=== PATIENT | male | born 1950 | race Caucasian/White ===

== ENCOUNTER 2019-03-25 08:00 | Day surgery (SDC) | payer MEDICARE, BC ==
[~2019-03-25] VITALS: Ht 180.3 cm; Wt 109.8 kg
[~2019-03-25 08:00] MED LIST: /BENA20TA; AMLO10TA; AMLO25TA PO; CALC500C16 PO; CHOL100029 PO; COUM1TAB17; CVS5000S2 PO; DUCOSATE SODIUM; ECOT81TA5 PO; ENOXAPARIN SODIUM; HYDR12.55 PO; HYDR25TA6; LOSA100T50 PO; LOTREL; MAGN400C2 PO; METO50TA7 PO; MULTCAP PO; NEXI1CAP3; NORV5TAB; OMEGA 3; POTA540T PO; TENO50TA; THERGRAN; TRIC145T19; [UNRECOGNIZED DRUG - MIXTURE]; [UNRECOGNIZED DRUG - OTHER]
[2019-03-25] MEDS: NS 1,000 ML IV ONE (08:30)
--- NOTE | 2019-03-25 09:53 | ROOR ---
Patient Name: Forest Mane Procedure Date: 03/25/2019 9:35 AM Date of : 1950 Age: 68 Room: [facility] Gender: Male Note Status: Finalized Procedure: Colonoscopy Indications: Screening for colorectal malignant neoplasm Providers: Aaron Albright Jr, MD Referring MD: Jai Mckeon MD Requesting Provider: Medicines: Propofol per Anesthesia Complications: No immediate complications. Procedure: Pre-Anesthesia Assessment: - Prior to the procedure, a History and Physical was performed, and patient medications and allergies were reviewed. The patient is competent. The risks and benefits of the procedure and the sedation options and risks were discussed with the patient. All questions were answered and informed consent was obtained. Patient identification and proposed procedure were verified by the physician and the nurse in the pre-procedure area and in the procedure room. Mental Status Examination: alert and oriented. Airway Examination: normal oropharyngeal airway and neck mobility. Respiratory Examination: clear to auscultation. CV Examination: normal. ASA Grade Assessment: II - A patient with mild systemic disease. After reviewing the risks and benefits, the patient was deemed in satisfactory condition to undergo the procedure. The anesthesia plan was to use moderate sedation / analgesia (conscious sedation). Immediately prior to administration of medications, the patient was re-assessed for adequacy to receive sedatives. The heart rate, respiratory rate, oxygen saturations, blood pressure, adequacy of pulmonary ventilation, and response to care were monitored throughout the procedure. The physical status of the patient was re-assessed after the procedure. The Colonoscope was introduced through the anus and advanced to the cecum, identified by appendiceal orifice and ileocecal valve. The colonoscopy was performed without difficulty. The patient tolerated the procedure well. The quality of the bowel preparation was adequate. Findings: The rectum, recto-sigmoid colon, descending colon, transverse colon, ascending colon, cecum, appendiceal orifice and ileocecal valve appeared normal. A few small and large-mouthed diverticula were found in the sigmoid colon. Impression: - The rectum, recto-sigmoid colon, descending colon, transverse colon, ascending colon, cecum, appendiceal orifice and ileocecal valve are normal. - Diverticulosis in the sigmoid colon. - No specimens collected. Recommendation: - Discharge patient to home (ambulatory). - Repeat colonoscopy in 10 years for screening purposes. Aaron Albright MD Aaron Albright Jr, MD 03/25/2019 9:53:11 AM Electronically signed by Aaron Albright Jr, MD Number of Addenda: 0 Note Initiated On: 03/25/2019 9:35 AM Estimated Blood Loss: Estimated blood loss: none.
[2019-03-26 09:07] VITALS: BP 143/86
== END 2019-03-25 10:28 | disposition home or self-care (01) ==
LOC: M OPP 08:00
PROVIDERS: ATTEND Surgery
DX: Z12.11 Encounter for screening for malignant neoplasm of colon (principal); K57.30 Diverticulosis of large intestine without perforation or abscess without bleeding; Z79.82 Long term (current) use of aspirin; Z79.899 Other long term (current) drug therapy; Z98.84 Bariatric surgery status

== ENCOUNTER → 2024-05-12 | Outpatient (REF) | payer MEDICARE, BC ==
[~2024-05-12] MED LIST changes: +LOSA100T46 PO; -LOSA100T50 PO
[2024-05-12 13:54] LABS: FERRITIN 27.4 NG/ML (10.5-307.3)
[2024-05-12 13:55] LABS: PHOSPHORUS LEVEL 3.2 MG/DL (2.4-5.1)
[2024-05-12 13:56] LABS: TOTAL 25(OH) VITAMIN D 61.5 NG/ML (20.0-100.0); TOTAL IRON BINDING CAPACITY 295 UG/DL (250-425)
[2024-05-12 13:57] LABS: IRON (FE) 89 UG/DL (65-175); PERCENT SATURATION 30.2 % (19.7-50.0)
[2024-05-12 13:58] LABS: VITAMIN B12 LEVEL 1048 PG/ML (211-911)
[2024-05-12 14:02] LABS: FOLATE > 24.0 NG/ML (>5.4)
== END ==
LOC: M LAB REF 13:05
PROVIDERS: ATTEND Family Medicine
DX: Z98.84 Bariatric surgery status (principal); Z79.899 Other long term (current) drug therapy

== ENCOUNTER 2025-03-15 15:52 | Emergency (ER) | payer MEDICARE, BC ==
[~2025-03-15] VITALS: Ht 175.3 cm; Wt 103.9 kg
[~2025-03-15 15:52] MED LIST changes: -POTA540T PO; +POTA540T5 PO
[2025-03-15 19:43] VITALS: BP 170/88
[2025-03-15] MEDS: LOSARTAN 50 MG TABLET PO ONE (19:43)
[2025-03-15] MEDS: METOPROLOL TART 50 MG TAB PO ONE (19:43)
[2025-03-15] MEDS: ACETAMINOPHEN 325 MG TAB PO ONE (22:00)
[2025-03-15] MEDS: TETANUS/DIPHTH/ACEL. PERTUSSIS 0.5 ML SYR IM ONE (23:50)
[2025-03-16 00:16] VITALS: BP 135/86; TEMP 97.3; O2SAT 95
== END 2025-03-16 00:15 | disposition home or self-care (01) ==
LOC: M ED 15:52
DX: S00.03XA Contusion of scalp, initial encounter (principal); W10.8XXA Fall (on) (from) other stairs and steps, initial encounter; Y92.009 Unspecified place in unspecified non-institutional (private) residence as the place of occurrence of the external cause; Y93.9 Activity, unspecified; Y99.9 Unspecified external cause status; I10 Essential (primary) hypertension; Z79.82 Long term (current) use of aspirin; Z79.899 Other long term (current) drug therapy